=== PATIENT | female | born 1995 | race Caucasian/White ===

== ENCOUNTER 2017-06-12 15:06 | Emergency (ER) | payer MEDICAID ==
[~2017-06-12] VITALS: Ht 172.7 cm; Wt 77.0 kg
[2017-06-12 15:45] VITALS: BP 103/62
[2017-06-12 16:38] LABS: BASOPHILS # (AUTO) 0.01 x10^3/uL (0-0.1); BASOPHILS % (AUTO) 0 % (0-1); EOSINOPHILS # (AUTO) 0.01 x10^3/uL (0-0.4); EOSINOPHILS % (AUTO) 0 % (1-7); LYMPHOCYTES # (AUTO) 1.91 x10^3/uL (1-3.4); LYMPHOCYTES % (AUTO) 23 % (22-44); MD NO; MEAN CORPUSCULAR HEMOGLOBIN 32.1 pg (27.0-34.8); MEAN CORPUSCULAR HGB CONC 33.5 g/dL (32.4-35.8); MEAN PLATELET VOLUME 9.1 fL (7.4-10.4); MONOCYTES # (AUTO) 0.56 x10^3/uL (0.2-0.8); MONOCYTES % (AUTO) 7 % (2-9); NEUTROPHILS # (AUTO) 6.02 x10^3/uL (1.8-6.8); NEUTROPHILS % (AUTO) 71 % (42-75); PLATELET COUNT 216 x10^3/uL (130-400); RED CELL DISTRIBUTION WIDTH 14.1 % (9.6-15.2)
[2017-06-12 16:55] LABS: MICROSCOPIC AUTO
== END 2017-06-12 20:38 | disposition home or self-care (01) ==
LOC: ED 20:11
DX: O20.0 Threatened abortion (principal); Z3A.18 18 weeks gestation of pregnancy
CPT/HCPCS: 36415; 76815; 81001; 85025; 86901; 99285

== ENCOUNTER 2017-07-07 09:45 | Emergency (ER) | payer MEDICAID, OTHER ==
[~2017-07-07] VITALS: Ht 172.7 cm; Wt 87.6 kg
[2017-07-07 11:51] LABS: MICROSCOPIC INDICATED
[2017-07-07 12:00] LABS: CULTURE INDICATED? YES
[2017-07-07 14:05] VITALS: BP 96/57
== END 2017-07-07 15:43 | disposition home or self-care (01) ==
LOC: ED 10:32
DX: O23.42 Unspecified infection of urinary tract in pregnancy, second trimester (principal); O26.892 Other specified pregnancy related conditions, second trimester; R31.9 Hematuria, unspecified; S70.12XA Contusion of left thigh, initial encounter; S30.0XXA Contusion of lower back and pelvis, initial encounter; W10.9XXA Fall (on) (from) unspecified stairs and steps, initial encounter; Z3A.22 22 weeks gestation of pregnancy; Y93.89 Activity, other specified; Y92.89 Other specified places as the place of occurrence of the external cause; Y99.9 Unspecified external cause status
CPT/HCPCS: 36415; 76815; 81001; 85460; 86900; 87086; 99285

== ENCOUNTER 2017-08-26 14:56 | Outpatient (CLI) | payer MEDICAID, OTHER ==
[~2017-08-26] VITALS: Ht 175.3 cm; Wt 77.3 kg
[2017-08-26 15:19] VITALS: BP 120/68
[2017-08-26 15:57] LABS: BASOPHILS # (AUTO) 0.03 x10^3/uL (0-0.1); BASOPHILS % (AUTO) 0 % (0-1); EOSINOPHILS % (AUTO) 0 % (1-7); LYMPHOCYTES # (AUTO) 1.54 x10^3/uL (1-3.4); LYMPHOCYTES % (AUTO) 16 % (22-44); MD NO; MEAN CORPUSCULAR HEMOGLOBIN 31.1 pg (27.0-34.8); MEAN CORPUSCULAR HGB CONC 33.5 g/dL (32.4-35.8); MEAN PLATELET VOLUME 9.5 fL (7.4-10.4); MONOCYTES # (AUTO) 0.58 x10^3/uL (0.2-0.8); MONOCYTES % (AUTO) 6 % (2-9); NEUTROPHILS # (AUTO) 7.41 x10^3/uL (1.8-6.8); NEUTROPHILS % (AUTO) 78 % (42-75); PLATELET COUNT 236 x10^3/uL (130-400); RED CELL DISTRIBUTION WIDTH 12.9 % (9.6-15.2)
[2017-08-26 16:09] LABS: AMPHETAMINE SCREEN, URINE Negative (Negative); BARBITURATE SCREEN, URINE Negative (Negative); BENZODIAZEPINE SCREEN, URINE Negative (Negative); CANNABINOID SCREEN, URINE Negative (Negative); COCAINE SCREEN, URINE Negative (Negative); METHADONE SCREEN, URINE Negative (Negative); OPIATE SCREEN, URINE Negative (Negative)
[2017-08-26 16:18] LABS: MICROSCOPIC INDICATED
[2017-08-26] MEDS ORDERED: TERBUTALINE 1 MG/ML, 1ML ONE (18:19)
== END 2017-08-26 18:37 | disposition home or self-care (01) ==
LOC: LDOP 14:56
PROVIDERS: ATTEND Obstetrics & Gynecology
DX: O26.893 Other specified pregnancy related conditions, third trimester (principal); R10.30 Lower abdominal pain, unspecified; Z3A.30 30 weeks gestation of pregnancy
CPT/HCPCS: 36415; 59025; 76805; 80307; 81001; 85025; 86592; 86762; 86850; 86900; 87086; 87340; 87806; 99211; G0463; G0475

== ENCOUNTER 2018-01-28 09:52 | Emergency (ER) | payer MEDICAID ==
[~2018-01-28] VITALS: Ht 175.3 cm; Wt 83.3 kg
[2018-01-28 10:43] LABS: MICROSCOPIC NOT IND
[2018-01-28 10:45] LABS: CULTURE INDICATED? NO
[2018-01-28 11:43] VITALS: BP 139/81
[2018-01-28] MEDS ORDERED: AZITHROMYCIN 250 MG TABLET ONE (11:46)
[2018-01-28] MEDS ORDERED: CEFTRIAXONE 250 MG ONE (11:46)
[2018-01-28] MEDS ORDERED: LIDOCAINE-MPF 1%, 5ML ONE (11:46)
[2018-01-28] MEDS ORDERED: CEFTRIAXONE 250 MG IM ONE (12:00)
[2018-01-28] MEDS ORDERED: AZITHROMYCIN 500 MG TABLET PO ONE (12:00)
== END 2018-01-28 12:25 | disposition home or self-care (01) ==
LOC: ED 10:48
DX: R10.2 Pelvic and perineal pain (principal); F17.200 Nicotine dependence, unspecified, uncomplicated
CPT/HCPCS: 81003; 87491; 87591; 96372; 99284; J0696